=== PATIENT | female | born 1960 | race Caucasian/White ===

== ENCOUNTER → 2016-10-19 | Outpatient (CLI) | payer BC ==
--- NOTE | 2016-10-19 16:13 | MY ---
EXAMINATION: Bilateral digital mammography utilizing CAD. HISTORY: Screening exam. Comparison is made to previous studies dated 09/04/2015, 09/03/2014, 014, 08/22/2012. FINDINGS: Bilateral heterogeneously dense breast tissue. No suspicious calcifications, masses or a rchitectural distortions. No pathologic appearing lymph nodes, no abnormal skin thickening or nipp le inversion. CAD highlighted regions appear normal at this time. IMPRESSION: BI-RADS category I - negative mammogram. Continued screening according to ACR-ACS gu idelines suggested. THE FALSE-NEGATIVE RATE OF MAMMOGRAM IS APPROXIMATELY 10%. MANAGEMENT OF A PALPABLE ABNORMALITY MUST BE BASED UPON CLINICAL GROUNDS. SENSITIVITY FOR DETECTION OF ABNORMALITIES IN DENSE BREASTS IS LOW. NOTE: A letter will be sent to the patient regarding findings. [facility] -- MARIO Sanchez [phone] - FAX [phone]
== END ==
LOC: MW.MAM 11:05
PROVIDERS: ATTEND Obstetrics & Gynecology
DX: Z12.31 Encounter for screening mammogram for malignant neoplasm of breast (principal)
CPT/HCPCS: G0202; G0202-26

== ENCOUNTER 2017-06-02 06:32 | Day surgery (SDC) | payer BC ==
[~2017-06-02 06:32] MED LIST: Lactated Ringers 1,000 ML IV SCH; Sodium Chloride 0.9% 10 ML Syringe FLUSH PRN; Sodium Chloride 0.9% 2.5 ML Syringe FLUSH PRN; ceFAZolin 1 GM in Premix Bag 1 BAG IV ONE
[2017-06-02] MEDS ORDERED: Rocuronium 10 MG/ML 10 ML Syringe ONE (07:23)
[2017-06-02] MEDS ORDERED: Lidocaine 2% 5 ML SDV ONE (07:23)
[2017-06-02] MEDS ORDERED: Neostigmine Methylsulfate 1 MG/ML 5 ML Syringe ONE (07:23)
[2017-06-02] MEDS ORDERED: Ondansetron 4 MG/2 ML SDV ONE (07:23)
[2017-06-02] MEDS ORDERED: Midazolam 1 MG/ML 2 ML SDV ONE (07:24)
[2017-06-02] MEDS ORDERED: Propofol 200 MG/20 ML SDV ONE (07:24)
[2017-06-02] MEDS ORDERED: fentaNYL 100 MCG/2 ML SDV ONE (07:24)
--- NOTE | 2017-06-02 07:25 | PCM.PREANE ---
Preanesthetic Assessment - Anesthesia/Transfusion/Family Hx Anesthesia History: Prior Anesthesia Without Reaction Family History of Anesthesia Reaction: No Transfusion History: No Prior Transfusion(s) - Review of Systems General: No Symptoms Pulmonary: No Symptoms Cardiovascular: No Symptoms Gastrointestinal: No Symptoms Neurological: No Symptoms Other: Reports: None - Physical Assessment NPO Status Date: 06/01/17 NPO Status Time: 21:30 O2 Sat by Pulse Oximetry: 98 Respiratory Rate: 16 Vital Signs: Last Vital Signs Temp 36.1 C 06/02/17 06:51 Pulse 71 06/02/17 06:51 Resp 16 06/02/17 06:51 BP 104/69 06/02/17 06:51 Pulse Ox 98 06/02/17 06:51 Height: 1.7 m Weight: 61.689 kg ASA Class: 1 Mental Status: Alert & Oriented x3 Airway Class: Mallampati = 1 Dentition: Reports: Normal Dentition ROM/Head Extension: Full Lungs: Clear to Auscultation, Normal Respiratory Effort Cardiovascular: Regular Rate, Regular Rhythm - Allergies Allergies/Adverse Reactions: Allergies Allergy/AdvReac Type Severity Reaction Status Date / Time No Known Allergies Allergy Verified 05/30/14 13:19 - Anesthesia Plan Pre-Op Medication Ordered: None - Acknowledgements Anesthesia Type Planned: General Anesthesia, MAC Pt an Appropriate Candidate for the Planned Anesthesia: Yes Alternatives and Risks of Anesthesia Discussed w Pt/Guardian: Yes Pt/Guardian Understands and Agrees with Anesthesia Plan: Yes PreAnesthesia Questionnaire Other HEENT History: wears glasses/contacts Cardiovascular History: Reports: None Respiratory History: Reports: None Gastrointestinal History: Reports: None Genitourinary History: Reports: None VP SITE History: Reports: Musculoskeletal History: Reports: Other (See Below) Other Musculoskeletal History: osteopenia Neurological History: Reports: None Psychiatric History: Reports: None Endocrine/Metabolic History: Reports: Osteopenia Hematologic History: Reports: None Immunologic History: Reports: None Oncologic (Cancer) History: Reports: None Dermatologic History: Reports: None - Past Surgical History Head Surgeries/Procedures: Reports: None HEENT Surgical History: Reports: Adenoidectomy, Tonsillectomy Other HEENT Surgeries/Procedures: hx of surgery to rt eye Female Surgical History: Reports: Breast Biopsy Oncologic Surgical History: Reports: Biopsy of Breast - SUBSTANCE USE Smoking Status *Q: Never Smoker Tobacco Use Within Last Twelve Months: No Second Hand Smoke Exposure: No Recreational Drug Use History: No - HOME MEDS Home Medications: Home Meds Alendronate Sodium [Fosamax] 70 mg PO WEEKLY 08/29/15 [History] Calcium Carbonate/Vitamin D3 [Calcium 1,000 + D3 Caplet] 1 tab PO DAILY [History] Estradiol [Vagifem] 1 tab VAG ASDIRECTED 08/29/15 [History] Multivitamin [Multivitamins] 1 tab PO DAILY 08/29/15 [History] prednisoLONE Acetate [Pred Forte 1% Ophth Susp] 1 drop EARRT BID 05/27/17 [ History] - CURRENT (IN HOUSE) MEDS Current Meds: Current Medications Lactated Ringer's (Ringers, Lactated) 1,000 mls @ 125 mls/hr IV ASDIRECTED [facility] Last Admin: 06/02/17 06:53 Dose: 125 mls/hr Sodium Chloride (Saline Flush) 10 ml FLUSH ASDIRECTED PRN PRN Reason: Keep Vein Open Sodium Chloride (Saline Flush) 2.5 ml FLUSH ASDIRECTED PRN PRN Reason: Keep Vein Open Discontinued Medications Cefazolin Sodium/Dextrose 1 gm (/ Premix) 50 mls @ 100 mls/hr IV ONETIME ONE Stop: 06/01/17 17:02
[2017-06-02] MEDS ORDERED: Bupivacaine 0.5% 30 ML SDV ONE (07:33)
[2017-06-02] MEDS ORDERED: Lidocaine 1% 20 ML MDV ONE (07:34)
[2017-06-02] MEDS ORDERED: Phenylephrine/Normal Saline 100 MCG/ML 10 ML Syringe ONE (08:30)
[2017-06-02] MEDS ORDERED: ceFAZolin 1 GM Vial ONE (08:30)
[2017-06-02] MEDS ORDERED: Sodium Chloride 0.9% 20 ML ONE (08:30)
[2017-06-02] MEDS ORDERED: ePHEDrine 50 MG/ML SDV ONE (08:30)
[2017-06-02] MEDS ORDERED: fentaNYL 100 MCG/2 ML SDV IVPUSH PRN (08:45)
--- NOTE | 2017-06-02 08:45 | PCM.OPNOTE ---
- General Post-Op/Procedure Note Date of Surgery/Procedure: 06/02/17 Operative Procedure(s): Right shoulder lipoma excision Findings: 5 cm x 4.5 cm x 2 cm fatty mass in right shoulder just posterior to the axillary line Pre Op Diagnosis: Lipoma Post-Op Diagnosis: same Anesthesia Technique: General ET Tube Primary Surgeon: Erin Valle EBL in mLs: 5 Condition: Good
[2017-06-02 09:52] VITALS: BP 109/62
--- NOTE | 2017-06-02 10:23 | PCM48HPAN ---
Post Anesthesia Note - EVALUATION WITHIN 48HRS OF ANESTHETIC Vital Signs in Normal Range: Yes Patient Participated in Evaluation: Yes Respiratory Function Stable: Yes Airway Patent: Yes Cardiovascular Function Stable: Yes Hydration Status Stable: Yes Pain Control Satisfactory: Yes Nausea and Vomiting Control Satisfactory: Yes Mental Status Recovered: Yes
--- NOTE | 2017-06-02 10:23 | PCM.POSTAN ---
POST ANESTHESIA ASSESSMENT - MENTAL STATUS Mental Status: Alert, Oriented - RESPIRATORY Respiratory Status: Respiratory Rate WNL, Airway Patent, O2 Saturation Stable - CARDIOVASCULAR CV Status: Pulse Rate WNL, Blood Pressure Stable - GASTROINTESTINAL GI Status: No Symptoms - POST OP HYDRATION Hydration Status: Adequate & Stable
--- NOTE | 2017-06-02 14:07 | OR ---
SURGEON: GOPAL SUGGS MD DATE OF PROCEDURE: 06/02/2017 PREOPERATIVE DIAGNOSIS: Right shoulder lipoma. POSTOPERATIVE DIAGNOSIS: Right shoulder lipoma. PROCEDURE PERFORMED: Right shoulder lipoma excision. ANESTHESIA: General endotracheal anesthesia. FLUIDS: See Anesthesia record. ESTIMATED BLOOD LOSS: 5 mL. FINDINGS: 5 x 4.5 x 2 cm fatty mass in the right shoulder just posterior to the posterior axillary line. COMPLICATIONS: None. INDICATIONS: The patient is a 57-year-old female who recently presented to clinic with an increasing mass under her right shoulder. The mass runs right along her bra line and is quite bothersome. On physical exam, she appeared to have a mobile soft mass within the subcutaneous tissues consistent with a lipoma. We discussed excision of this versus watchful waiting. The patient would like to have it excised. We discussed the procedure as well as expected perioperative course. We discussed the risks including bleeding, infection, or damage to the surrounding structures. The patient verbalized understanding and wishes to proceed. PROCEDURE IN DETAIL: The patient was brought into the OR and placed on the OR table in supine position. General endotracheal anesthesia was induced. A time-out was completed verifying the patient's name, age, date of , allergies, and procedure to be performed. The patient was then placed in the left lateral decubitus position with the right arm placed at a 90-degree angle from her body. All appropriate bony surfaces were padded. The right chest wall, axilla, and upper arm were prepped and draped in the usual standard fashion. The mass had been identified with preoperative marking. I anesthetized the area of the skin overlying the mass with 0.5% Marcaine plain. A 15-blade was used to make an incision in the skin approximately 4 cm in size. Cautery was used to dissect down to the subcutaneous fat. Once I reached the level of the subcutaneous fat, I palpated the mass again. It appeared to be deeper than originally anticipated. Cautery was used to dissect down until I reached a large fatty- appearing structure that was consistent with a lipoma. Using cautery, I dissected around the mass and freed it from the surrounding subcutaneous tissues. The mass was then grasped with Rochelle's and elevated to allow me to dissect the lipoma free from the underlying tissues. The mass was then removed and sent to pathology labeled as right shoulder lipoma. It measured 5 x 4.5 x 2 cm in size. I inspected my operative field for hemostasis. Cautery was used to achieve hemostasis. I closed the wound using interrupted 3-0 Vicryls in the subcutaneous fat, effectively closing the defect. The skin was then closed with a running 4-0 Monocryl suture. Steri-Strips and sterile dressings were applied. The patient tolerated the procedure well and was taken to PACU in a stable condition. DION JACOBSON /[id number] RAVI
== END 2017-06-02 09:50 | disposition home or self-care (01) ==
LOC: MW.SDS 06:32
PROVIDERS: ATTEND Surgery
DX: D17.1 Benign lipomatous neoplasm of skin and subcutaneous tissue of trunk (principal); M85.80 Other specified disorders of bone density and structure, unspecified site; N95.2 Postmenopausal atrophic vaginitis; N88.2 Stricture and stenosis of cervix uteri; Z79.83 Long term (current) use of bisphosphonates; Z79.818 Long term (current) use of other agents affecting estrogen receptors and estrogen levels; Z79.899 Other long term (current) drug therapy; Z90.89 Acquired absence of other organs; Z98.890 Other specified postprocedural states
CPT/HCPCS: 11406; 12032; J0690; J2250; J2405; J3010; J7120; 01610; 88304; J2704